=== PATIENT | female | born 1970 | race Two or more races ===

== ENCOUNTER 2017-08-09 16:30 | Emergency (ER) | payer OTHER ==
--- NOTE | 2017-08-09 16:36 | EDPHY ---
H & P Stated Complaint: Chronic pelvic pain Time Seen by Provider: 08/09/17 16:36 HPI/ROS: CHIEF COMPLAINT: Chronic pelvic pain HISTORY OF PRESENT ILLNESS: The patient presents to the ED with several months of chronic pelvic pain and discharge. The patient reportedly has some sort of uterine malformation she cannot characterize. She reports she has had months of chronic pelvic pain and drainage. She reports postcoital pain. She is having occasional spotting. She denies fever. She is in a monogamous relationship with her . The patient has not had recent imaging. The patient does have a history of multiple brain surgeries for a tumor. The patient denies any dysuria. She denies any flank pain. She complains of mild suprapubic cramping. REVIEW OF SYSTEMS: A comprehensive 10 point review of systems is otherwise negative aside from elements mentioned in the history of present illness. Source: Patient Exam Limitations: No limitations - Personal History LMP (Females 10-55): 8-14 Days Ago Current Tetanus/Diphtheria Vaccine: Unsure Current Tetanus Diphtheria and Acellular Pertussis (TDAP): Unsure - Medical/Surgical History Hx Asthma: No Hx Chronic Respiratory Disease: No Hx Diabetes: No Hx Cardiac Disease: No Hx Renal Disease: No Hx Cirrhosis: No Hx Alcoholism: No Hx HIV/AIDS: No Hx Splenectomy or Spleen Trauma: No Other PMH: 3 brain tumor sx. - Social History Smoking Status: Never smoked - Physical Exam Exam: General Appearance: Alert, no distress Eyes: Pupils equal and round no pallor or injection ENT, Mouth: Mucous membranes moist Respiratory: There are no retractions, lungs are clear to auscultation Cardiovascular: Regular rate and rhythm Gastrointestinal: Minimal suprapubic tenderness Pelvic examination: Dark blood in vaginal vault, appears to be uterine any etiology, difficult to visualize cervix, no cervical motion tenderness appreciated Neurological: A&O, normal motor function, normal sensory exam, normal cranial nerves Skin: Warm and dry, no rashes Musculoskeletal: Neck is supple nontender Extremities: symmetrical, full range of motion Constitutional: Initial Vital Signs Temperature (C) 36.7 C 08/09/17 16:32 Heart Rate 72 08/09/17 16:32 Respiratory Rate 20 08/09/17 16:32 Blood Pressure 101/87 H 08/09/17 16:32 O2 Sat (%) 98 08/09/17 16:32 O2 Delivery Mode Room Air Allergies/Adverse Reactions: No Known Allergies Allergy (Unverified 08/09/17 16:32) Home Medications: Medication Instructions Recorded NK [No Known Home Meds] 08/09/17 Medical Decision Making - Diagnostics Imaging Results: Imaging Impressions Pelvic/Renal Ultrasound 08/09/17 17:02 Impression: Normal pelvic ultrasound. Findings discussed with Tavo Sevilla 08/09/2017 at 17:45. ED Course/Re-evaluation: The patient presents to the ED with several months of pelvic pain, discharge and a reported history of an anatomic abnormality in her uterus. Patient's pelvic examination demonstrates mild bleeding without an obvious source. A GC chlamydia test was obtained. The patient was taken for a pelvic ultrasound which was unremarkable. The patient was noted to have a normal hematocrit. The patient will be discharged with instructions to follow up with our on-call cranberry sorter for further evaluation for symptoms. She has no evidence of an acute abdomen currently. Differential Diagnosis: Differential diagnosis considered includes fibroid, endometriosis, ovarian cyst , ovarian torsion - Data Points Laboratory Results: Laboratory Results 08/09/17 16:50 08/09/17 16:50 08/09/17 08/09/17 08/09/17 16:50 16:50 16:50 WBC 7.47 10^3/uL 10^3/uL (3.80-9.50) RBC 4.83 10^6/uL 10^6/uL (4.18-5.33) Hgb 9.7 g/dL L g/dL (12.6-16.3) Hct 32.3 % L % (38.0-47.0) MCV 66.9 fL L fL (81.5-99.8) MCH 20.1 pg L pg (27.9-34.1) MCHC 30.0 g/dL L g/dL (32.4-36.7) RDW 18.7 % H % (11.5-15.2) Plt Count 267 10^3/uL 10^3/uL (150-400) MPV TNP Neut % (Auto) 65.9 % % (39.3-74.2) Lymph % (Auto) 24.0 % % (15.0-45.0) Cloud % (Auto) 8.0 % % (4.5-13.0) Eos % (Auto) 1.1 % % (0.6-7.6) Baso % (Auto) 0.7 % % (0.3-1.7) Nucleat RBC Rel Count 0.0 % % (0.0-0.2) Absolute Neuts (auto) 4.93 10^3/uL 10^3/uL (1.70-6.50) Absolute Lymphs (auto) 1.79 10^3/uL 10^3/uL (1.00-3.00) Absolute Monos (auto) 0.60 10^3/uL 10^3/uL (0.30-0.80) Absolute Eos (auto) 0.08 10^3/uL 10^3/uL (0.03-0.40) Absolute Basos (auto) 0.05 10^3/uL 10^3/uL (0.02-0.10) Absolute Nucleated RBC 0.00 10^3/uL 10^3/uL (0-0.01) Immature Gran % 0.3 % % (0.0-1.1) Immature Gran # 0.02 10^3/uL 10^3/uL (0.00-0.10) Platelet Estimate Pending Smear Review By Pending Sodium 140 mEq/L mEq/L (134-144) Potassium 4.1 mEq/L mEq/L (3.5-5.2) Chloride 107 mEq/L mEq/L (97-110) Carbon Dioxide 24 mEq/l mEq/l (22-31) Anion Gap 9 mEq/L mEq/L (8-16) BUN 7 mg/dL mg/dL (7-23) Creatinine 0.7 mg/dL mg/dL (0.6-1.0) Estimated GFR > 60 Glucose 81 mg/dL mg/dL (70-100) Calcium 9.5 mg/dL mg/dL (8.5-10.4) Beta HCG, Qual NEGATIVE Departure - Departure Disposition: Home, Routine, Self-Care Clinical Impression: Pelvic pain, Dysfunctional uterine bleeding Condition: Good Instructions: Pelvic Pain (ED) Additional Instructions: 1. Please schedule a follow-up appointment with the cranberry sorter you have been referred to for a comprehensive gynecologic exam. 2. Please return to the ED for severe pain, fever, vomiting or other concerns. 3. Take Ibuprofen or Motrin 600 mg by mouth three times a day. 4. [facility] as needed for pain Referrals: Amparo Zaidi MD [Medical Doctor] - As per Instructions
[2017-08-09 17:02] LABS: % IMMATURE GRANULYOCYTES 0.3 % (0.0-1.1); ABSOLUTE IMMATURE GRANULOCYTES 0.02 10^3/uL (0.00-0.10); ADD DIFF? NO; ADD MORPH? YES; ADD SCAN? NO; ATYPICAL LYMPHOCYTE FLAG 10 (0-99); FRAGMENT RBC FLAG 60 (0-99); HEMATOCRIT 32.3 % (38.0-47.0); HEMOGLOBIN 9.7 g/dL (12.6-16.3); LEFT SHIFT FLG 0 (0-99); LIPEMIA HEMOLYSIS FLAG 80 (0-99); MEAN CELL HEMOGLOBIN 20.1 pg (27.9-34.1); PLATELET CLUMPS FLAG 30 (0-99); PLATELET COUNT 267 10^3/uL (150-400); RED BLOOD CELL COUNT 4.83 10^6/uL (4.18-5.33); RED CELL DISTRIBUTION WIDTH 18.7 % (11.5-15.2)
[2017-08-09 17:10] LABS: ANION GAP 9 mEq/L (8-16); CALCIUM 9.5 mg/dL (8.5-10.4); CARBON DIOXIDE 24 mEq/l (22-31); CHLORIDE 107 mEq/L (97-110); CREATININE 0.7 mg/dL (0.6-1.0); GLOMERULAR FILTRATION RATE > 60; GLUCOSE 81 mg/dL (70-100); MEAN CELL VOLUME 66.9 fL (81.5-99.8); POTASSIUM 4.1 mEq/L (3.5-5.2); SODIUM 140 mEq/L (134-144)
[2017-08-09 18:38] VITALS: BP 113/62; PULSE 79; RESP 16; TEMP 98.4; O2SAT 95
[2017-08-09 19:07] LABS: ELLIPTOCYTES 1+; PLATELET ESTIMATE ADEQUATE (ADEQ)
[2017-08-09 19:08] LABS: MICROCYTES 2+; SPHEROCYTES 2+
[2017-08-09] MEDS ORDERED: HYDROCOD/APAP 5/325 PREPACK#6 BTL TAKEHOME ONE (19:32)
[2017-08-11 14:01] LABS: CHLAMYDIA AMPLIFICATION GENPRB NEGATIVE (NEGATIVE)
== END 2017-08-09 18:36 | disposition home or self-care (01) ==
DX: R10.2 Pelvic and perineal pain (principal); N93.8 Other specified abnormal uterine and vaginal bleeding; Z85.841 Personal history of malignant neoplasm of brain